=== PATIENT | female | born 1945 | race African-American/Black ===

== ENCOUNTER 2017-11-16 13:04 | Observation (INO) ==
[2017-11-16] MEDS ORDERED: ENOXAPARIN 100 MG/ML SYRINGE SUBCUT STA (14:40)
[2017-11-16] MEDS ORDERED: ASPIRIN 325 MG TABLET PO STA (14:40)
[2017-11-16] MEDS ORDERED: NITROGLYCERIN SL 0.4 MG TABLET SL PRN (14:40)
[2017-11-16] MEDS ORDERED: ENOXAPARIN 100 MG/ML SYRINGE SUBCUT ONE (14:47)
[2017-11-16] MEDS ORDERED: NITROGLYCERIN SL 0.4 MG TABLET SL ONE (14:47)
[2017-11-16] MEDS ORDERED: ASPIRIN 325 MG TABLET ONE (14:48)
[2017-11-16 15:45] LABS: Basophils % 0.1 % (0.0-0.8); Hematocrit 38.6 VOL% (35.7-47.0); Hemoglobin 12.4 GM/DL (12.0-16.0); Immature Granulocytes % 0.5 %; Immature Granulocytes Absolute 0.06 #; Lymphocytes # 0.8 10*3/uL (1.4-4.0); Lymphocytes % 6.4 % (21.3-54.2); Mean Corpuscular HGB Conc 32.1 GM/DL (32-36); Mean Corpuscular Hemoglobin 29 PG (27-34); Mean Corpuscular Volume 90.4 FL (87-102); Mean Platelet Volume 9.9 FL (9.6-12.0); Monocytes # 0.4 10*3/uL (0.11-0.8); Monocytes % 3.2 % (1.7-12.7); Neutrophils # 11.4 10*3/uL (1.4-7.4); Neutrophils % 89.8 % (38.7-73.9); Platelet Count 251 T/CUMM (130-400); Red Blood Count 4.27 MC/CUMM (3.8-5.5); Red Cell Distribution Width 12.9 % (9.3-17.3); White Blood Count 12.7 T/CUMM (4-12)
[2017-11-16 15:56] LABS: PT Patient Result 10.5 SECS
[2017-11-16 16:08] LABS: Albumin 3.8 G/DL (3.4-5.0); Bilirubin,Total 0.5 MG/DL (0.2-1.0); Calcium 9.7 MG/DL (8.5-10.1); Osmolality,Calculated 277.7 MOS/KG (273-304); Potassium 4.5 MMOL/L (3.5-5.1); Total Protein 7.7 G/DL (6.4-8.3)
[2017-11-16] MEDS ORDERED: CELECOXIB 200 MG CAPSULE PO PRN (19:32)
[2017-11-16] MEDS ORDERED: HYDROmorphone 2 MG TABLET PO PRN (19:32)
[2017-11-16] MEDS ORDERED: ONDANSETRON 4 MG/2 ML VIAL IV PRN (19:32)
[2017-11-16] MEDS ORDERED: GLUCAGON 1 MG VIAL IM PRN (19:32)
[2017-11-16] MEDS ORDERED: SODIUM CHLORIDE 0.9% 1,000 ML IV SCH (19:32)
[2017-11-16] MEDS ORDERED: DEXTROSE 50% 25 GM/50 ML VIAL IV PRN (19:32)
[2017-11-16] MEDS ORDERED: ACETAMINOPHEN 325 MG TABLET PO PRN (19:32)
[2017-11-16] MEDS ORDERED: GABAPENTIN 100 MG CAPSULE PO PRN (19:32)
[2017-11-16] MEDS ORDERED: PRAVASTATIN 20 MG TABLET PO SCH (21:00)
[2017-11-16] MEDS: DOCUSATE SODIUM 100 MG CAPSULE PO SCH (21:02)
[2017-11-16] MEDS: NITROGLYCERIN 2% OINT 1 INCH/GM PACK TOP SCH (21:03)
[2017-11-16] MEDS: INSULIN REGULAR 100 UNIT/ML SUBCUT SCH (21:05)
[2017-11-17] MEDS: NITROGLYCERIN 2% OINT 1 INCH/GM PACK TOP SCH ×4 (00:40→17:55)
[2017-11-17 05:53] LABS: Basophils % 0.1 % (0.0-0.8); Hematocrit 37.1 VOL% (35.7-47.0); Immature Granulocytes % 0.6 %; Immature Granulocytes Absolute 0.08 #; Lymphocytes # 1.1 10*3/uL (1.4-4.0); Lymphocytes % 8.1 % (21.3-54.2); Mean Corpuscular HGB Conc 32.3 GM/DL (32-36); Mean Corpuscular Hemoglobin 29 PG (27-34); Mean Corpuscular Volume 88.1 FL (87-102); Mean Platelet Volume 10.6 FL (9.6-12.0); Monocytes # 0.6 10*3/uL (0.11-0.8); Monocytes % 4.4 % (1.7-12.7); Neutrophils # 11.7 10*3/uL (1.4-7.4); Neutrophils % 86.8 % (38.7-73.9); Platelet Count 233 T/CUMM (130-400); Red Blood Count 4.21 MC/CUMM (3.8-5.5); White Blood Count 13.5 T/CUMM (4-12)
[2017-11-17 06:10] LABS: Albumin 3.4 G/DL (3.4-5.0); Bilirubin,Total 0.5 MG/DL (0.2-1.0); Calcium 9.6 MG/DL (8.5-10.1); Osmolality,Calculated 283.3 MOS/KG (273-304); Potassium 4.4 MMOL/L (3.5-5.1); Risk Ratio 3.33; Total Protein 6.6 G/DL (6.4-8.3); VLDL CHOLESTEROL 20.6 MG/DL
[2017-11-17] MEDS ORDERED: LEVOTHYROXINE 25 MCG TABLET PO SCH (06:30)
[2017-11-17] MEDS ORDERED: ASPIRIN EC 81 MG TABLET PO SCH (09:00)
[2017-11-17] MEDS ORDERED: PANTOPRAZOLE 40 MG TABLET PO SCH (09:00)
[2017-11-17] MEDS: INSULIN REGULAR 100 UNIT/ML SUBCUT SCH ×3 (11:07→16:27)
[2017-11-17] MEDS: KETOROLAC 30 MG/1 ML VIAL IV SCH ×2 (12:46→16:25)
[2017-11-17] MEDS: DOCUSATE SODIUM 100 MG CAPSULE PO SCH (12:47)
[2017-11-17 16:12] VITALS: BP 142/72
[2017-11-17] MEDS ORDERED: ENOXAPARIN 40 MG/0.4 ML SYRINGE SUBCUT SCH (21:00)
== END 2017-11-17 18:44 | disposition home or self-care (01) ==
LOC: N.ED 13:04 → N.EDINP 13:04 → N.TELEN 19:30
PROVIDERS: ADMIT Family Medicine; ATTEND Family Medicine

== ENCOUNTER 2019-02-14 05:49 | Inpatient (IN) ==
[2019-02-14] MEDS ORDERED: ceFAZolin 1,000 MG in SYRINGE 1 EACH IV ONE (06:00)
[2019-02-14] MEDS ORDERED: VANCOMYCIN INJ 1,000 MG in SODIUM CHLORIDE 0.9% 250 ML IV ONE (06:00)
[2019-02-14] MEDS ORDERED: ceFAZolin 1,000 MG VIAL ONE (06:04)
[2019-02-14] MEDS ORDERED: VANCOMYCIN 1,000 MG VIAL ONE (06:04)
[2019-02-14] MEDS ORDERED: LACTATED RINGERS 1,000 ML IV SCH (07:00)
[2019-02-14] MEDS ORDERED: DIAZEPAM 5 MG TABLET ONE (08:57)
[2019-02-14] MEDS ORDERED: FAMOTIDINE 20 MG TABLET ONE (08:57)
[2019-02-14] MEDS ORDERED: FAMOTIDINE 20 MG TABLET PO ONE (09:00)
[2019-02-14] MEDS ORDERED: DIAZEPAM 5 MG TABLET PO ONE (09:00)
[2019-02-14] MEDS ORDERED: TRANEXAMIC ACID 1,000 MG/10 ML VIAL ONE (09:29)
[2019-02-14] MEDS ORDERED: MORPHINE 4 MG/1 ML VIAL IV PRN ×2 (09:42→14:04)
[2019-02-14] MEDS ORDERED: LACTULOSE 20 GM/30 ML UDCUP PO PRN (09:42)
[2019-02-14] MEDS ORDERED: PROMETHAZINE 25 MG/1 ML VIAL IM PRN (09:42)
[2019-02-14] MEDS ORDERED: BISACODYL 10 MG SUPP RECTAL PRN (09:42)
[2019-02-14] MEDS ORDERED: diphenhydrAMINE CAP 25 MG CAPSULE PO PRN ×2 (09:42→09:46)
[2019-02-14] MEDS ORDERED: MIDAZOLAM 2 MG/2 ML VIAL ONE (12:05)
[2019-02-14] MEDS ORDERED: BUPIVACAINE 0.5% 50 ML VIAL ONE (12:05)
[2019-02-14] MEDS ORDERED: PROPOFOL 200 MG/20 ML VIAL IV ONE (12:05)
[2019-02-14] MEDS ORDERED: BUPIVACAINE SPINAL 0.75% 2 ML AMP SPINAL ONE (12:05)
[2019-02-14] MEDS ORDERED: ACETAMINOPHEN 1,000 MG/100 ML VIAL IV ONE (12:06)
[2019-02-14] MEDS ORDERED: SODIUM CHLORIDE 0.9% 500 ML IV ONE (12:06)
[2019-02-14] MEDS ORDERED: fentaNYL 100 MCG/2 ML VIAL ONE (12:06)
[2019-02-14] MEDS ORDERED: SODIUM CHLORIDE 0.9% 100 ML IV ONE (12:06)
[2019-02-14] MEDS ORDERED: PHENYLEPHRINE 1 MG/10 ML SYRINGE IV ONE (12:06)
[2019-02-14] MEDS ORDERED: LIDOCAINE 2% TOP JELLY 20 ML VIAL INTRAURETH ONE (12:47)
[2019-02-14] MEDS: MORPHINE 4 MG/1 ML VIAL IV PRN ×3 (16:33→23:42)
[2019-02-14] MEDS: ONDANSETRON 4 MG/2 ML VIAL IV PRN (16:35)
[2019-02-14] MEDS: ceFAZolin 2,000 MG in SYRINGE 1 EACH IV SCH (17:19)
[2019-02-14] MEDS ORDERED: TEMAZEPAM 7.5 MG CAPSULE PO PRN (21:00)
[2019-02-14] MEDS: FONDAPARINUX 2.5 MG/0.5 ML SYRINGE SUBCUT SCH (21:47)
[2019-02-14] MEDS: DOCUSATE SODIUM 100 MG CAPSULE PO SCH (21:48)
[2019-02-15] MEDS: ceFAZolin 2,000 MG in SYRINGE 1 EACH IV SCH (00:02)
[2019-02-15] MEDS: MORPHINE 4 MG/1 ML VIAL IV PRN (03:20)
[2019-02-15 05:44] LABS: Basophils % 0.1 % (0.0-0.8); Hematocrit 36.9 VOL% (35.7-47.0); Hemoglobin 11.4 GM/DL (12.0-16.0); Immature Granulocytes % 0.5 %; Immature Granulocytes Absolute 0.08 #; Lymphocytes # 1.1 10*3/uL (1.4-4.0); Lymphocytes % 7.5 % (21.3-54.2); Mean Corpuscular HGB Conc 30.9 GM/DL (32-36); Mean Corpuscular Volume 91.3 FL (87-102); Mean Platelet Volume 9.8 FL (9.6-12.0); Monocytes % 4.7 % (1.7-12.7); Neutrophils % 87.2 % (38.7-73.9); Platelet Count 213 T/CUMM (130-400); Red Blood Count 4.04 MC/CUMM (3.8-5.5); Red Cell Distribution Width 12.4 % (9.3-17.3); White Blood Count 14.8 T/CUMM (4-12)
[2019-02-15 05:59] LABS: Calcium 8.3 MG/DL (8.5-10.1); Osmolality,Calculated 273.8 MOS/KG (273-304)
[2019-02-15] MEDS: LEVOTHYROXINE 25 MCG TABLET PO SCH (06:42)
[2019-02-15] MEDS: CELECOXIB 200 MG CAPSULE PO SCH (09:27)
[2019-02-15] MEDS: ONDANSETRON 4 MG/2 ML VIAL IV PRN (09:27)
[2019-02-15] MEDS: DOCUSATE SODIUM 100 MG CAPSULE PO SCH ×2 (09:27→21:07)
[2019-02-15 14:19] LABS: Apearance,Urine Slightly Hazy (Clear); Bacteria,Urine Occasional /HPF (Few); Bilirubin,Urine Negative (Negative); Blood, Urine Small mg/dL (Negative); Glucose,Urine (UA) Negative (Negative); Ketones,Urine Negative (Negative); Mucus,Urine Occasional /LPF (Occasional); Nitrite,Urine Negative (Negative); Protein,Urine Negative; RBC,Urine 3 /HPF (0-4); Squamous Epithelial Cell,Urine Occasional /HPF (0-10); Urine Color Yellow (Yellow); Urine Specific Gravity 1.009 (1.001-1.035); Urine Urobilinogen < 2.0 EU/DL (0.2-1.0); WBC,Urine 13 /HPF (0-6)
[2019-02-15] MEDS: FONDAPARINUX 2.5 MG/0.5 ML SYRINGE SUBCUT SCH (21:07)
[2019-02-16 06:11] LABS: Basophils % 0.1 % (0.0-0.8); Eosinophils % 0.1 % (0.00-10.9); Hematocrit 32.5 VOL% (35.7-47.0); Hemoglobin 10.2 GM/DL (12.0-16.0); Immature Granulocytes % 0.8 %; Immature Granulocytes Absolute 0.13 #; Lymphocytes # 1.2 10*3/uL (1.4-4.0); Lymphocytes % 7.4 % (21.3-54.2); Mean Corpuscular HGB Conc 31.4 GM/DL (32-36); Mean Corpuscular Volume 90.8 FL (87-102); Monocytes % 5.1 % (1.7-12.7); Neutrophils % 86.5 % (38.7-73.9); Platelet Count 180 T/CUMM (130-400); Red Blood Count 3.58 MC/CUMM (3.8-5.5); Red Cell Distribution Width 12.8 % (9.3-17.3); White Blood Count 15.6 T/CUMM (4-12)
[2019-02-16] MEDS: LEVOTHYROXINE 25 MCG TABLET PO SCH (06:11)
[2019-02-16 06:49] LABS: Albumin 2.6 G/DL (3.4-5.0); Calcium 8.6 MG/DL (8.5-10.1); Osmolality,Calculated 271.1 MOS/KG (273-304); Total Protein 6.2 G/DL (6.4-8.3)
[2019-02-16] MEDS: DOCUSATE SODIUM 100 MG CAPSULE PO SCH ×2 (08:56→21:12)
[2019-02-16] MEDS: MAGNESIUM HYDROXIDE SUSP 30 ML UDCUP PO PRN (08:56)
[2019-02-16] MEDS: CELECOXIB 200 MG CAPSULE PO SCH (08:56)
[2019-02-16] MEDS: ONDANSETRON 4 MG/2 ML VIAL IV PRN (17:23)
[2019-02-16] MEDS: FONDAPARINUX 2.5 MG/0.5 ML SYRINGE SUBCUT SCH (21:12)
[2019-02-17 04:56] LABS: Basophils % 0.1 % (0.0-0.8); Eosinophils % 0.2 % (0.00-10.9); Hematocrit 30.2 VOL% (35.7-47.0); Hemoglobin 9.2 GM/DL (12.0-16.0); Immature Granulocytes % 0.7 %; Immature Granulocytes Absolute 0.09 #; Lymphocytes # 1.1 10*3/uL (1.4-4.0); Lymphocytes % 8.7 % (21.3-54.2); Mean Corpuscular HGB Conc 30.5 GM/DL (32-36); Mean Corpuscular Volume 91.8 FL (87-102); Mean Platelet Volume 10.6 FL (9.6-12.0); Monocytes % 4.7 % (1.7-12.7); Neutrophils % 85.6 % (38.7-73.9); Platelet Count 176 T/CUMM (130-400); Red Blood Count 3.29 MC/CUMM (3.8-5.5); Red Cell Distribution Width 12.7 % (9.3-17.3); White Blood Count 12.8 T/CUMM (4-12)
[2019-02-17 05:20] LABS: Calcium 8.6 MG/DL (8.5-10.1); Osmolality,Calculated 277.5 MOS/KG (273-304)
[2019-02-17] MEDS: LEVOTHYROXINE 25 MCG TABLET PO SCH (06:22)
[2019-02-17] MEDS ORDERED: ACETAMINOPHEN 325 MG TABLET PO ONE (08:21)
[2019-02-17] MEDS: MAGNESIUM HYDROXIDE SUSP 30 ML UDCUP PO PRN (08:49)
[2019-02-17] MEDS: CELECOXIB 200 MG CAPSULE PO SCH (08:49)
[2019-02-17] MEDS: DOCUSATE SODIUM 100 MG CAPSULE PO SCH (08:49)
[2019-02-17] MEDS: ONDANSETRON 4 MG/2 ML VIAL IV PRN (08:53)
[2019-02-17 11:34] VITALS: BP 151/64
== END 2019-02-17 14:49 | DRG 470 ==
LOC: N.SDSINP 05:49 → N.3E 13:37
PROVIDERS: ADMIT Orthopaedic Surgery; ATTEND Orthopaedic Surgery

== ENCOUNTER 2020-12-02 05:51 | Inpatient (IN) ==
[2020-12-02] MEDS ORDERED: VANCOMYCIN INJ 1,000 MG in SODIUM CHLORIDE 0.9% 250 ML IV ONE (06:00)
[2020-12-02] MEDS ORDERED: LACTATED RINGERS 1,000 ML IV SCH (06:00)
[2020-12-02] MEDS ORDERED: ACETAMINOPHEN 500 MG TABLET PO ONE (06:00)
[2020-12-02] MEDS ORDERED: GABAPENTIN 400 MG CAPSULE PO ONE (06:00)
[2020-12-02] MEDS ORDERED: FAMOTIDINE 20 MG TABLET PO ONE (06:00)
[2020-12-02] MEDS ORDERED: fentaNYL 100 MCG/2 ML VIAL ONE (06:39)
[2020-12-02] MEDS ORDERED: MIDAZOLAM 2 MG/2 ML VIAL ONE (06:39)
[2020-12-02] MEDS ORDERED: DEXAMETHASONE 4 MG/1 ML VIAL ONE (06:44)
[2020-12-02] MEDS ORDERED: ROPIVACAINE 0.5% 30 ML VIAL ONE (06:44)
[2020-12-02] MEDS ORDERED: ONDANSETRON 4 MG/2 ML VIAL IV PRN (07:05)
[2020-12-02] MEDS ORDERED: TEMAZEPAM 7.5 MG CAPSULE PO PRN (07:05)
[2020-12-02] MEDS ORDERED: LACTULOSE 20 GM/30 ML UDCUP PO PRN (07:05)
[2020-12-02] MEDS ORDERED: PROMETHAZINE 25 MG/1 ML VIAL IM PRN (07:05)
[2020-12-02] MEDS ORDERED: MAGNESIUM HYDROXIDE SUSP 30 ML UDCUP PO PRN (07:05)
[2020-12-02] MEDS ORDERED: BISACODYL 10 MG SUPP RECTAL PRN (07:05)
[2020-12-02] MEDS ORDERED: diphenhydrAMINE CAP 25 MG CAPSULE PO PRN ×2 (07:05→07:08)
[2020-12-02] MEDS ORDERED: ONDANSETRON 4 MG TABLET PO PRN (07:08)
[2020-12-02] MEDS ORDERED: LIDOCAINE 2% 5 ML VIAL ONE ×2 (07:19→07:32)
[2020-12-02] MEDS ORDERED: MORPHINE 4 MG/1 ML VIAL IV PRN (07:27)
[2020-12-02] MEDS ORDERED: TRANEXAMIC ACID 1,000 MG/10 ML VIAL ONE (07:32)
[2020-12-02] MEDS ORDERED: propofoL 200 MG/20 ML VIAL IV ONE (07:35)
[2020-12-02] MEDS ORDERED: ONDANSETRON 4 MG/2 ML VIAL ONE (08:09)
[2020-12-02] MEDS ORDERED: SODIUM CHLORIDE 0.9% 100 ML IV ONE (08:09)
[2020-12-02] MEDS ORDERED: BUPIVACAINE SPINAL 0.75% 2 ML AMP SPINAL ONE (08:10)
[2020-12-02] MEDS ORDERED: DEXMEDETOMIDINE 200 MCG/2 ML VIAL ONE (08:11)
[2020-12-02] MEDS: PANTOPRAZOLE 40 MG TABLET PO SCH ×2 (11:42→20:23)
[2020-12-02] MEDS: CELECOXIB 200 MG CAPSULE PO SCH (11:42)
[2020-12-02] MEDS: ROSUVASTATIN 20 MG TABLET PO SCH (11:42)
[2020-12-02] MEDS: ceFAZolin 2,000 MG in PREMIX 1 EACH IV SCH ×3 (14:43→21:08)
[2020-12-02] MEDS: MORPHINE 4 MG/1 ML VIAL IV PRN (17:21)
[2020-12-02] MEDS: FONDAPARINUX 2.5 MG/0.5 ML SYRINGE SUBCUT SCH (18:21)
[2020-12-02] MEDS: PREGABALIN 75 MG CAPSULE PO SCH (20:24)
[2020-12-02] MEDS: DOCUSATE SODIUM 100 MG CAPSULE PO SCH (20:24)
[2020-12-03 05:31] LABS: Basophils % 0.1 % (0.0-0.8); Hematocrit 34.6 VOL% (35.7-47.0); Hemoglobin 10.5 GM/DL (12.0-16.0); Immature Granulocytes % 0.7 %; Lymphocytes % 6.9 % (21.3-54.2); Mean Corpuscular HGB Conc 30.3 GM/DL (32-36); Mean Corpuscular Volume 94.5 FL (87-102); Mean Platelet Volume 9.9 FL (9.6-12.0); Monocytes % 5.9 % (1.7-12.7); Neutrophils % 86.4 % (38.7-73.9); Platelet Count 206 T/CUMM (130-400); Red Blood Count 3.66 MC/CUMM (3.8-5.5); Red Cell Distribution Width 12.7 % (9.3-17.3); White Blood Count 14.4 T/CUMM (4-12)
[2020-12-03] MEDS: LEVOTHYROXINE 25 MCG TABLET PO SCH (05:38)
[2020-12-03 05:57] LABS: Calcium 9.1 MG/DL (8.5-10.1); Osmolality,Calculated 278.5 MOS/KG (273-304)
[2020-12-03] MEDS: DOCUSATE SODIUM 100 MG CAPSULE PO SCH ×2 (08:35→20:49)
[2020-12-03] MEDS: CELECOXIB 200 MG CAPSULE PO SCH (08:35)
[2020-12-03] MEDS: ROSUVASTATIN 20 MG TABLET PO SCH (08:35)
[2020-12-03] MEDS: PANTOPRAZOLE 40 MG TABLET PO SCH ×2 (08:35→20:49)
[2020-12-03] MEDS: MORPHINE 4 MG/1 ML VIAL IV PRN ×3 (09:16→18:20)
[2020-12-03] MEDS: FONDAPARINUX 2.5 MG/0.5 ML SYRINGE SUBCUT SCH (17:04)
[2020-12-03] MEDS: PREGABALIN 75 MG CAPSULE PO SCH (20:49)
[2020-12-04 05:14] LABS: Basophils % 0.2 % (0.0-0.8); Hemoglobin 8.9 GM/DL (12.0-16.0); Immature Granulocytes % 0.6 %; Immature Granulocytes Absolute 0.07 #; Lymphocytes # 1.6 10*3/uL (1.4-4.0); Mean Corpuscular HGB Conc 31.8 GM/DL (32-36); Mean Corpuscular Volume 90.6 FL (87-102); Mean Platelet Volume 9.9 FL (9.6-12.0); Monocytes % 6.7 % (1.7-12.7); Neutrophils % 78.5 % (38.7-73.9); Platelet Count 166 T/CUMM (130-400); Red Blood Count 3.09 MC/CUMM (3.8-5.5); White Blood Count 11.7 T/CUMM (4-12)
[2020-12-04 05:36] LABS: Calcium 8.6 MG/DL (8.5-10.1); Osmolality,Calculated 277.5 MOS/KG (273-304); Potassium 3.5 MMOL/L (3.5-5.1)
[2020-12-04 05:51] LABS: Risk Ratio 1.73; Thyroid Stimulating Hormone 2.89 uIU/ml (0.358-3.74)
[2020-12-04] MEDS: LEVOTHYROXINE 25 MCG TABLET PO SCH (06:02)
[2020-12-04] MEDS: PANTOPRAZOLE 40 MG TABLET PO SCH ×2 (08:46→20:42)
[2020-12-04] MEDS: ROSUVASTATIN 20 MG TABLET PO SCH (08:46)
[2020-12-04] MEDS: DOCUSATE SODIUM 100 MG CAPSULE PO SCH ×2 (08:46→20:42)
[2020-12-04] MEDS: CELECOXIB 200 MG CAPSULE PO SCH (08:46)
[2020-12-04] MEDS: FONDAPARINUX 2.5 MG/0.5 ML SYRINGE SUBCUT SCH (17:59)
[2020-12-04] MEDS: PREGABALIN 75 MG CAPSULE PO SCH (20:42)
[2020-12-05 06:10] LABS: Basophils % 0.2 % (0.0-0.8); Eosinophils # 0.1 10*3/uL (0.0-0.87); Eosinophils % 0.8 % (0.00-10.9); Hematocrit 27.9 VOL% (35.7-47.0); Hemoglobin 8.5 GM/DL (12.0-16.0); Immature Granulocytes % 0.5 %; Immature Granulocytes Absolute 0.06 #; Lymphocytes # 1.6 10*3/uL (1.4-4.0); Lymphocytes % 13.7 % (21.3-54.2); Mean Corpuscular HGB Conc 30.5 GM/DL (32-36); Mean Corpuscular Volume 93.6 FL (87-102); Mean Platelet Volume 9.8 FL (9.6-12.0); Monocytes % 4.4 % (1.7-12.7); Neutrophils % 80.4 % (38.7-73.9); Platelet Count 148 T/CUMM (130-400); Red Blood Count 2.98 MC/CUMM (3.8-5.5); Red Cell Distribution Width 13.2 % (9.3-17.3); White Blood Count 11.4 T/CUMM (4-12)
[2020-12-05 06:20] LABS: Calcium 8.6 MG/DL (8.5-10.1); Osmolality,Calculated 278.4 MOS/KG (273-304); Potassium 3.6 MMOL/L (3.5-5.1)
[2020-12-05] MEDS: LEVOTHYROXINE 25 MCG TABLET PO SCH (07:18)
[2020-12-05] MEDS: DOCUSATE SODIUM 100 MG CAPSULE PO SCH (08:50)
[2020-12-05] MEDS: ROSUVASTATIN 20 MG TABLET PO SCH (08:51)
[2020-12-05] MEDS: CELECOXIB 200 MG CAPSULE PO SCH (08:51)
[2020-12-05] MEDS: PANTOPRAZOLE 40 MG TABLET PO SCH (08:51)
[2020-12-05 12:02] VITALS: BP 117/56
== END 2020-12-05 16:19 | disposition swing bed (61) | DRG 470 ==
LOC: N.OR 05:51 → N.SDSINP 05:54 → N.3E 11:38
PROVIDERS: ADMIT Orthopaedic Surgery; ATTEND Orthopaedic Surgery